=== PATIENT | male | born 1995 | race Caucasian/White ===

== ENCOUNTER → 2025-01-13 | Outpatient (CLI) | payer OTHER ==
[2025-01-13 11:14] LABS: BASO # 0.0 10^3/uL (0.0-0.2); BASO % 0.4 % (0.0-1.0); EOS # 0.2 10^3/uL (0.0-0.5); EOS % 2.8 % (0.0-3.0); LYMPH # 3.4 10^3/uL (1.5-5.0); LYMPH % 50.3 % (24.0-44.0); MONO # 0.4 10^3/uL (0.0-0.8); MONO % 6.3 % (2.0-8.0); NEUTROPHILS # 2.7 10^3/uL (1.5-8.5); NEUTROPHILS % 39.5 % (36.0-66.0); PLATELET COUNT, AUTOMATED 218 10^3/uL (150-450)
[2025-01-13 12:33] LABS: HEPATITIS C VIRUS ABY INDEX > 11.00 INDEX (<0.8)
[2025-01-16 01:03] LABS: HCV RNA QUANTITATION <15 DETECTED IU/mL (NOT DETECTED); HCV RNA log10 <1.18 DETECTED Log IU/mL (NOT DETECTED)
== END ==
LOC: M LAB 09:42
DX: Z00.8 Encounter for other general examination (principal)

== ENCOUNTER 2025-01-25 14:23 | Emergency (ER) | payer OTHER ==
[~2025-01-25] VITALS: Ht 175.3 cm; Wt 115.0 kg
[2025-01-25] MEDS ORDERED: SOFO1TAB PO (14:36)
[2025-01-25] MEDS ORDERED: BUSP10TA PO (14:36)
[2025-01-25] MEDS ORDERED: GABA-284 PO (14:36)
[2025-01-25] MEDS ORDERED: TRAZ-257 PO (14:36)
[2025-01-25] MEDS ORDERED: BUPR8SUB PO (14:36)
[2025-01-25] MEDS ORDERED: IBUP600T42 PO (14:36)
[2025-01-25] MEDS ORDERED: CVS10CAP7 PO (14:36)
[2025-01-25] MEDS ORDERED: WELLTAB40 PO (14:36)
[2025-01-25] MEDS: ACETAMINOPHEN 500 MG TAB PO ONE (17:00)
[2025-01-25 17:03] VITALS: BP 136/92; TEMP 98.2; O2SAT 98
== END 2025-01-25 17:06 | disposition home or self-care (01) ==
LOC: M ED 14:23
DX: S93.401A Sprain of unspecified ligament of right ankle, initial encounter (principal); W01.198A Fall on same level from slipping, tripping and stumbling with subsequent striking against other object, initial encounter; F17.200 Nicotine dependence, unspecified, uncomplicated; Y92.003 Bedroom of unspecified non-institutional (private) residence as the place of occurrence of the external cause; Y93.89 Activity, other specified; Y99.9 Unspecified external cause status; Z91.018 Allergy to other foods; Z79.1 Long term (current) use of non-steroidal anti-inflammatories (NSAID); Z79.899 Other long term (current) drug therapy